=== PATIENT | male | born 1995 | race Caucasian/White ===

== ENCOUNTER → 2018-10-17 | Emergency (ER) | payer OTHER ==
[~2018-10-17] MED LIST: ASPIRIN325 PO; BUSPIRONE HCL10 MG PO; CYCLOBENZAPRINE5 MG PO; FLEXERIL PO; IBUPROFEN 800800 MG PO; REMERON15 MG PO; [UNRECOGNIZED DRUG - OTHER]
== END ==
LOC: M.ERS 22:17
DX: Z53.21 Procedure and treatment not carried out due to patient leaving prior to being seen by health care provider (principal)